=== PATIENT | female | born 1965 | race Caucasian/White ===

== ENCOUNTER 2017-01-30 18:48 | Emergency (ER) | payer OTHER ==
[2017-01-30] MEDS ORDERED: Ibuprofen TAB* 600 MG PO ONE (19:39)
[2017-01-30 20:55] VITALS: BP 137/76
--- NOTE | 2017-01-30 21:01 | RAD ---
Indication: Right foot pain 3 views of the right foot demonstrates degenerative changes of the first metatarsophalangeal joint. No fracture is identified. IMPRESSION: No fracture of the right foot is noted.
--- NOTE | 2017-01-30 21:19 | UC ---
Priscilla Lee SooYoung, scribed for Ricky Shelton MD on 01/30/17 at 1940 . Lower Extremity/Ankle HPI - HPI Summary HPI Summary: A 51 y/o F [place] [facility] [place]/o R foot pain onset 4 to 5 days ago. She went to move a stool and mistakenly kicked it with the inside of her R foot. She states her L foot is nml. Denies R ankle pain. - History of Current Complaint Chief Complaint: UCLowerExtremity Stated Complaint: ANKLE INJURY Time Seen by Provider: 01/30/17 19:35 Hx Obtained From: Patient Hx Last Menstrual Period: 11/08/14 Onset/Duration: Sudden Onset, Lasting Days, Still Present Severity Initially: Moderate Severity Currently: Moderate Pain Intensity: 7 Pain Scale Used: 0-10 Numeric Aggravating Factor(s): Standing, Ambulation Able to Bear Weight: Yes - Allergies/Home Medications Allergies/Adverse Reactions: Allergies Allergy/AdvReac Type Severity Reaction Status Date / Time Doxycycline Allergy Intermediate GI Upset Verified 03/16/15 12:26 Nortriptyline Allergy Intermediate See Comment Verified 03/16/15 12:26 Penicillins Allergy Intermediate Difficulty Verified 03/16/15 12:26 Breathing/Wheezing PMH/Surg Hx/FS Hx/Imm Hx Previously Healthy: No Endocrine History: Thyroid Disease Respiratory History: Asthma - Surgical History Surgical History: Yes Surgery Procedure, Year, and Place: age 14- bowel surgery, tubal, 03/2012-tumor removed between rib and hip, neck surgery for bone spurs. - Social History Occupation: Unemployed Lives: Alone Alcohol Use: None Alcohol Amount: no etoh in 8 years. Substance Use Type: Prescribed Smoking Status (MU): Never Smoked Tobacco Review of Systems Constitutional: Negative Musculoskeletal: Other: - pos: R foot pain; denies R ankle pain All Other Systems Reviewed And Are Negative: Yes Physical Exam Triage Information Reviewed: Yes Vital Signs: Initial Vital Signs Temp 99.0 F 01/30/17 18:51 Pulse 77 01/30/17 18:51 Resp 18 01/30/17 18:51 BP 121/76 01/30/17 18:51 Pulse Ox 100 01/30/17 18:51 Vital Signs Reviewed: Yes Musculoskeletal: Positive: Other: - Tender at R medial foot on plantar surface and medial surface. Ankle is nontender. Good capillary refill. No sensation deficit. Diagnostics - Radiology R FOOT Xray Interpretation: No Acute Changes - IMPRESSION: No fx of the R foot is noted. Radiology Interpretation Completed By: Radiologist Lower Extremity Course/Dx - Course Course Of Treatment: Pt medications reviewed this visit. Normal BP reading and no follow-up instructions required. X-RAY RESULTS DISCUSSED WITH THE PATIENT. - Differential Dx/Diagnosis Provider Diagnoses: RIGHT FOOT STRAIN Discharge - Discharge Plan Condition: Stable Disposition: HOME Patient Education Materials: Foot Sprain (ED) Referrals: Polina BIRD,Dmitriy Carranza [Primary Care Provider] - Additional Instructions: FOLLOW UP WITH YOUR DOCTOR. GET RECHECKED FOR ANY WORSENING OF YOUR CONDITION OR QUESTIONS OR CONCERNS. The documentation as recorded by the Priscilla agarwal SooYoung accurately reflects the service I personally performed and the decisions made by me, Ricky Shelton MD.
== END 2017-01-30 21:22 | disposition home or self-care (01) ==
LOC: UCEAST 18:48
DX: S93.601A Unspecified sprain of right foot, initial encounter (principal); W22.03XA Walked into furniture, initial encounter; Y93.9 Activity, unspecified; Y92.9 Unspecified place or not applicable; Y99.9 Unspecified external cause status
CPT/HCPCS: 99212; A9270-GY; G0463

== ENCOUNTER 2018-02-19 14:29 | Emergency (ER) | payer OTHER ==
--- NOTE | 2018-02-19 16:12 | UC ---
Back Pain HPI - History of Current Complaint Chief Complaint: UCBackPain Stated Complaint: LEG AND HIP PAIN Time Seen by Provider: 02/19/18 15:56 Hx Last Menstrual Period: 12/29/17 Pain Intensity: 10 - Allergies/Home Medications Allergies/Adverse Reactions: Allergies Allergy/AdvReac Type Severity Reaction Status Date / Time doxycycline Allergy GI Upset Verified 02/19/18 14:59 morphine Allergy GI Upset Verified 02/19/18 14:59 nortriptyline Allergy Altered Verified 02/19/18 14:59 Mental Status Penicillins Allergy Difficulty Verified 02/19/18 14:59 Breathing PMH/Surg Hx/FS Hx/Imm Hx - Surgical History Surgical History: Yes Surgery Procedure, Year, and Place: age 14- bowel surgery, tubal, 03/2012-tumor removed between rib and hip, neck surgery for bone spurs. - Social History Alcohol Use: None Alcohol Amount: no etoh in 8 years. Substance Use Type: Prescribed Smoking Status (MU): Never Smoked Tobacco Physical Exam Vital Signs: Initial Vital Signs Temp 98.6 F 02/19/18 14:52 Pulse 82 02/19/18 14:52 Resp 12 02/19/18 14:52 BP 110/77 02/19/18 14:52 Pulse Ox 99 02/19/18 14:52 Discharge - Discharge Plan Referrals: Polina BIRD,Dmitriy Carranza [Primary Care Provider] -
--- NOTE | 2018-02-19 16:32 | RAD ---
INDICATION: Low back pain. COMPARISON: Comparison is made with a prior x-ray study from February 07, 2013. TECHNIQUE: 5 views of the lumbar spine were obtained including lateral, oblique, AP and a coned-down lateral view of the lumbar sacral junction. FINDINGS: There is a mild lumbar scoliosis convex toward the right side. There is straightening of the lumbar spine. The vertebra are otherwise in normal alignment. No fracture is seen. There is moderate to severe degenerative disc disease at the L1-L2, L2-L3 and L5-S1 levels and moderate degenerative disc disease at the L3-L4 and L4-L5 levels. This has progressed from the prior study. Note is made of surgical sutures in the right lower quadrant. IMPRESSION: MODERATE TO SEVERE DEGENERATIVE DISC DISEASE.
[2018-02-19 16:58] VITALS: BP 105/68
== END 2018-02-19 17:39 | disposition home or self-care (01) ==
LOC: UCEAST 14:29
DX: M79.606 Pain in leg, unspecified (principal); M25.559 Pain in unspecified hip
CPT/HCPCS: 72110; 99212; G0463

== ENCOUNTER 2018-02-25 12:52 | Emergency (ER) | payer OTHER ==
[2018-02-25] MEDS ORDERED: Ketorolac INJ* 60 MG/2 ML VIAL IM ONE (13:23)
--- NOTE | 2018-02-25 13:43 | ED ---
Neck Pain - HPI Summary HPI Summary: Patient is a 52-year-old female who presents emergency department for exacerbation of chronic neck pain. Patient states a few days ago she was lifting heavy objects of liquid and she developed increased neck pain. Patient states she has a history of neck surgery remotely secondary to bone spurs. She also notes she has a history of headaches and has been having a headache with neck pain as well. Headache is located to the base of head. She denies numbness, tingling or weakness. States headache is similar to prior headaches. Movement makes symptoms worse. Nothing makes symptoms better. Patient states she is prescribed also relaxers and narcotics but does not like to take them. Patient is concerned that her hardware has possibly moved because she has been hearing a "grinding sensation." Symptoms are mild in severity. - History of Current Complaint Chief Complaint: EDNeckComplaint Stated Complaint: NECK PAIN,HEADACHE Time Seen by Provider: 02/25/18 13:03 Hx Obtained From: Patient Hx Last Menstrual Period: 12/29/17 Pain Intensity: 9 - Allergies/Home Medications Allergies/Adverse Reactions: Allergies Allergy/AdvReac Type Severity Reaction Status Date / Time doxycycline Allergy GI Upset Verified 02/19/18 14:59 morphine Allergy GI Upset Verified 02/19/18 14:59 nortriptyline Allergy Altered Verified 02/19/18 14:59 Mental Status Penicillins Allergy Difficulty Verified 02/19/18 14:59 Breathing Home Medications: Home Medications Levothyroxine TAB* [Synthroid TAB*] 62.5 mcg PO DAILY 02/25/18 [History Confirmed 02/25/18] PMH/Surg Hx/FS Hx/Imm Hx Previously Healthy: Yes Endocrine/Hematology History: Reports: Hx Thyroid Disease Denies: Hx Diabetes Cardiovascular History: Denies: Hx Hypertension - Low Blood pressure Respiratory History: Reports: Hx Asthma Denies: Hx Chronic Obstructive Pulmonary Disease (COPD) GI History: Denies: Hx Ulcer Neurological History: Reports: Hx Headaches - Cancer History Hx Chemotherapy: No Hx Radiation Therapy: No - Surgical History Surgery Procedure, Year, and Place: age 14- bowel surgery, tubal, 03/2012-tumor removed between rib and hip, neck surgery for bone spurs. Infectious Disease History: No Infectious Disease History: Denies: Hx Clostridium Difficile, Hx Hepatitis, Hx Human Immunodeficiency Virus (HIV), Hx of Known/Suspected MRSA, Hx Shingles, Hx Tuberculosis, History Other Infectious Disease, Traveled Outside the [place] in Last 30 Days - Social History Occupation: Unemployed Lives: Alone Alcohol Use: None Alcohol Amount: no etoh in 8 years. Substance Use Type: Reports: Prescribed Smoking Status (MU): Never Smoked Tobacco Review of Systems Constitutional: Negative Eyes: Negative Positive: Nausea. Negative: Vomiting Positive: Other - Neck pain Positive: Headache. Negative: Weakness, Paresthesia, Numbness All Other Systems Reviewed And Are Negative: Yes Physical Exam Triage Information Reviewed: Yes Vital Signs On Initial Exam: Initial Vitals Temp Pulse Resp BP Pulse Ox 98.6 F 81 17 122/70 97 02/25/18 12:56 02/25/18 12:56 02/25/18 12:56 02/25/18 12:56 02/25/18 12:56 Vital Signs Reviewed: Yes Appearance: Positive: Pain Distress - Pt. sitting up in bed, appears uncomfortable but nontoxic. Skin: Positive: Warm, Dry Head/Face: Positive: Normal Head/Face Inspection Eyes: Positive: Normal Neck: Positive: Supple - Paraspinal cervical tenderness. Musculoskeletal: Positive: Other - 5/5 strength to bilateral upper extremities. Neurological: Positive: Normal, CN Intact II-III Psychiatric: Positive: Affect/Mood Appropriate Diagnostics - Vital Signs Vital Signs Temp Pulse Resp BP Pulse Ox 02/25/18 12:56 98.6 F 81 17 122/70 97 - Laboratory Lab Statement: Any lab studies that have been ordered have been reviewed, and results considered in the medical decision making process. Neck Course/Dx - Course Course Of Treatment: Patient presenting for exacerbation of chronic head and neck pain. She is afebrile. No neurological deficits on exam. Pt. is concerned with worsening pain and the possibility of hardware moving. Will obtain neck x-ray and give IM Toradol for pain. Cervical x-ray shows surgical changes with degenerative disc disease and osteoarthritis, reading per radiology. On reexamination patient states her pain has improved. Results were discussed. Advised her to call her family doctor for a close f.u appointment. Continue medications at home as directed. To apply warm compresses to neck. To return the ER if symptoms change or worsen. Patient understands and agrees with plan. - Diagnoses Differential Dx/HQI/PQRI: Positive: Cervical Fracture, Dislocation, Sprain, Strain, Torticollis Provider Diagnoses: Chronic neck pain, Cephalgia Discharge - Sign-Out/Discharge Documenting (check all that apply): Patient Departure - Discharge Plan Condition: Good Disposition: HOME Patient Education Materials: Tension Headache (ED), Chronic Neck Pain (DC) Referrals: Polina BIRD,Dmitriy Carranza [Primary Care Provider] - Additional Instructions: Call your PCP to schedule an appointment Continue home medications as directed Apply warm compress to neck Return to ER if symptoms change or worsen - Billing Disposition and Condition Condition: GOOD Disposition: Home
--- NOTE | 2018-02-25 14:45 | RAD ---
HISTORY: pain, neck pain COMPARISONS: February 27, 2013 VIEWS: 5, Frontal, lateral, open-mouth odontoid, and bilateral oblique views of the cervical spine. FINDINGS: The cervical spine is visualized from the skull base through T1. ALIGNMENT: There is straightening of the normal cervical lordosis. VERTEBRAL BODIES: The patient is status post anterior cervical fusion from C5 through C7. There is no hardware failure or osteolysis. There is anterolateral marginal osteophyte formation most pronounced at C4-C5. JOINTS: There is uncovertebral and facet osteoarthritis. On the oblique views, there is mild left neural foraminal narrowing at C5-C6. INTERVERTEBRAL DISCS: There is diffuse loss of intervertebral disc height. Intervertebral graft material is noted at C5-C6 and C6-C7 SOFT TISSUE: The prevertebral soft tissues are normal. OTHER: The skull base is normal. The lung apices are clear. IMPRESSION: STATUS POST ANTERIOR CERVICAL FUSION. DEGENERATIVE DISC DISEASE AND OSTEOARTHRITIS.
[2018-02-25 15:08] VITALS: BP 130/80
== END 2018-02-25 15:10 | disposition home or self-care (01) ==
LOC: ED 12:52
DX: M50.323 Other cervical disc degeneration at C6-C7 level (principal); M47.812 Spondylosis without myelopathy or radiculopathy, cervical region; G89.29 Other chronic pain; R51 Headache; E07.9 Disorder of thyroid, unspecified; Z98.1 Arthrodesis status; Z79.899 Other long term (current) drug therapy; Z88.5 Allergy status to narcotic agent; Z88.0 Allergy status to penicillin; Z88.3 Allergy status to other anti-infective agents
CPT/HCPCS: 72050; 96372; 99282; J1885

== ENCOUNTER 2019-02-24 18:20 | Emergency (ER) | payer OTHER ==
--- NOTE | 2019-02-24 18:32 | UC ---
Skin Complaint HPI - History of Current Complaint Time Seen by Provider: 02/24/19 18:31 Stated Complaint: SUNBURN COMP Hx Last Menstrual Period: 12/29/17 - Allergy/Home Medications Allergies/Adverse Reactions: Allergies Allergy/AdvReac Type Severity Reaction Status Date / Time doxycycline Allergy GI Upset Verified 01/29/19 07:50 morphine Allergy GI Upset Verified 01/29/19 07:50 nortriptyline Allergy Altered Verified 01/29/19 07:50 Mental Status Penicillins Allergy Difficulty Verified 01/29/19 07:50 Breathing PMH/Surg Hx/FS Hx/Imm Hx - Surgical History Surgical History: Yes Surgery Procedure, Year, and Place: age 14- bowel surgery, tubal, 03/2012-tumor removed between rib and hip, neck surgery for bone spurs. - Family History Known Family History: Negative: Cardiac Disease, Hypertension, Diabetes - Social History Alcohol Use: None Alcohol Amount: no etoh in 8 years. Substance Use Type: None Smoking Status (MU): Never Smoked Tobacco Discharge - Discharge Plan Referrals: Polina BIRD,Dmitriy Carranza [Primary Care Provider] -
[2019-02-24 18:41] VITALS: BP 118/69
--- NOTE | 2019-02-24 18:48 | UC ---
General HPI - HPI Summary HPI Summary: Pleasant 53 yo female c/o sunburn to both lower ext's. Sunburn started apprx 5 days ago, but then went out in the sun yesterday. Several blisters have appeared to R ant tib, and some smalled blisters to L ant tib. No fever / chills. She is planning to f/u with her pcp for recheck re palpitations and back problems. These have not worsened, no palpitations today. No gI / gu issues. Pt is disabled d/t severe neck and back issues with chronic pain and dysesthesia. Last tet unsure - History of Current Complaint Chief Complaint: UCBurn Stated Complaint: SUNBURN COMP Time Seen by Provider: 02/24/19 18:31 Hx Obtained From: Patient Hx Last Menstrual Period: still having a period - has been bleeding for a month Pain Intensity: 9 - Allergy/Home Medications Allergies/Adverse Reactions: Allergies Allergy/AdvReac Type Severity Reaction Status Date / Time amitriptyline [From Elavil] Allergy Altered Verified 02/24/19 18:50 Mental Status diphenhydramine Allergy Altered Verified 02/24/19 18:42 [From Benadryl] Mental Status doxycycline Allergy GI Upset Verified 02/24/19 18:42 lorazepam [From Ativan] Allergy Altered Verified 02/24/19 18:50 Mental Status morphine Allergy GI Upset Verified 02/24/19 18:42 nortriptyline Allergy Altered Verified 02/24/19 18:42 Mental Status Penicillins Allergy Difficulty Verified 02/24/19 18:42 Breathing pseudoephedrine Allergy Altered Verified 02/24/19 18:42 [From Sudafed] Mental Status Home Medications: Home Medications Ibuprofen TAB* [Motrin TAB* 600 MG] 800 mg PO Q6H PRN 02/24/19 [History Confirmed 02/24/19] PMH/Surg Hx/FS Hx/Imm Hx Previously Healthy: No - see hpi and 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 moles removed - Family History Known Family History: Negative: Cardiac Disease, Hypertension, Diabetes - Social History Occupation: Disabled Alcohol Use: None Alcohol Amount: no etoh in 8 years. Substance Use Type: None Smoking Status (MU): Never Smoked Tobacco Review of Systems All Other Systems Reviewed And Are Negative: Yes Constitutional: Positive: Negative Skin: Positive: Other - see hpi ENT: Positive: Negative Respiratory: Positive: Negative Cardiovascular: Positive: Palpitations - see hpi. not a new issue. + hx heart murmur. Gastrointestinal: Positive: Negative Genitourinary: Positive: Negative Motor: Positive: Other - see hpi Neurovascular: Positive: Other - see hpi Musculoskeletal: Positive: Other: - see hpi Neurological: Positive: Other - see hpi Psychological: Positive: Negative Is Patient Immunocompromised?: No Physical Exam Triage Information Reviewed: Yes Appearance: Well-Appearing, Well-Nourished Vital Signs: Initial Vital Signs Temp 98.9 F 02/24/19 18:32 Pulse 91 02/24/19 18:32 Resp 20 02/24/19 18:32 BP 118/69 02/24/19 18:32 Pulse Ox 100 02/24/19 18:32 Vital Signs Reviewed: Yes Eye Exam: Normal ENT Exam: Normal Neck exam: Normal Respiratory Exam: Normal Respiratory: Positive: Chest non-tender, Lungs clear, Normal breath sounds, No respiratory distress, No accessory muscle use Cardiovascular Exam: Other - RRR, + murmur syst approx 2/6. HR correlates with R radial pulse. Abdominal Exam: Normal Abdomen Description: Positive: Nontender Musculoskeletal Exam: Other - gait slow, steady. somewhat hunched. Neurological Exam: Other - grossly nonfocal, chronic issues reported Psychological Exam: Normal - conversing easily and appropriately Skin Exam: Other - nondiaphoretic, no vis or reported rash. Sunburn bilat ant tib with blisters R>L. No purulence. Very tender. Course/Dx - Course Course Of Treatment: EKG reviewed (see meditech), NSR Blisters draining serous nonpurulent material. Bandages to R and L placed by myself with nonadherent, contact layer, gauze, roll guaze / tape. Reviewed coa / tx plan. Reviewed wound care. Questions as posed answered to the best of my ability. Encouraged f/u with pcp. - Diagnoses Provider Diagnosis: Sunburn, Palpitation Discharge - Sign-Out/Discharge Documenting (check all that apply): Patient Departure All imaging exams completed and their final reports reviewed: No Studies - Discharge Plan Condition: Improved Disposition: HOME Prescriptions: Mupirocin 2% OINT* [Bactroban 2 % Oint*] 1 applic TOPICAL BID 5 Days #1 tube Patient Education Materials: Diphtheria/Acellular Pertussis/Tetanus Booster Vaccine (By injection), Heart Palpitations (ED), Sunburn (ED) Referrals: Polina BIRD,Dmitriy Carranza [Primary Care Provider] - Additional Instructions: Follow up with your primary care physician - call tomorrow for appointment tomorrow or early next week. Please go to the Emergency Department for any worse or new problems. Hydrate. Gallegos: Avoid strong soaps, hydrogen peroxide, rubbing alcohol. Elevate legs frequently throughout the day. Consider compression socks or stockings (check with Dr. Fish) when the gallegos are improved and less painful. for five days: 50/50 mupirocin (prescription) / hydrocortisone cream (over the counter) - thin layer to shins twice daily. You do not need to bandage them after tomorrow, but please Avoid direct sun exposure. After 5 days, moisturize daily with unscented moisturizer. Shower ok tomorrow. Bath ok in 5 days. No swimming or hot tub for 2 weeks (longer if still oozing). - Billing Disposition and Condition Condition: IMPROVED Disposition: Home
[2019-02-24] MEDS ORDERED: Tetan/Diph/Pertus SYR(Tdap)* 0.5 ML SYR(BOOSTRIX) use SYR IM ONE (19:41)
== END 2019-02-24 20:07 | disposition home or self-care (01) ==
LOC: UCEAST 18:20
DX: L55.9 Sunburn, unspecified (principal); R00.2 Palpitations; Z88.5 Allergy status to narcotic agent; Z88.0 Allergy status to penicillin
CPT/HCPCS: 90471; 90715; 99212; G0463

== ENCOUNTER 2019-06-15 09:39 | Emergency (ER) | payer OTHER ==
[2019-06-15 10:01] VITALS: BP 115/80
--- NOTE | 2019-06-15 10:23 | UC ---
Complaint Female HPI - HPI Summary HPI Summary: 54-year-old female who started having urinary symptoms approximately 4 days ago with urinary frequency, urgency and burning on urination. She is sexually active with one partner and denies any abnormal vaginal discharge. She states that, what she describes as pelvic pain, is worse when she urinates and she urinates just small bits at a time. Patient also has a mild headache today with some mild upper left jaw pain which she attributes to a broken decayed tooth which she has had for over one year and occasionally that will become painful and causes jaw pain. She has had several negative experiences with dentists and is reluctant to see a dentist for further care. - History Of Current Complaint Chief Complaint: UCGU Stated Complaint: PELVIC PAIN Time Seen by Provider: 06/15/19 09:59 Hx Obtained From: Patient Hx Last Menstrual Period: 05/10/19, states irreg. ?: No Onset/Duration: Gradual Onset, Lasting Days Timing: Constant Severity Initially: Mild Severity Currently: Moderate Pain Intensity: 6 Character: Burning Aggravating Factor(s): Urination Associated Signs And Symptoms: Positive: Nausea. Negative: Vaginal Bleeding/ Discharge, Vaginal Discharge - Allergies/Home Medications Allergies/Adverse Reactions: Allergies Allergy/AdvReac Type Severity Reaction Status Date / Time amitriptyline [From Elavil] Allergy Altered Verified 06/15/19 09:52 Mental Status diphenhydramine Allergy Altered Verified 06/15/19 09:52 [From Benadryl] Mental Status doxycycline Allergy GI Upset Verified 06/15/19 09:52 latex Allergy Rash Verified 06/15/19 09:52 lorazepam [From Ativan] Allergy Altered Verified 06/15/19 09:52 Mental Status morphine Allergy GI Upset Verified 06/15/19 09:52 nortriptyline Allergy Altered Verified 06/15/19 09:52 Mental Status Penicillins Allergy Difficulty Verified 06/15/19 09:52 Breathing pseudoephedrine Allergy Altered Verified 06/15/19 09:52 [From Sudafed] Mental Status PMH/Surg Hx/FS Hx/Imm Hx Previously Healthy: Yes Endocrine History: Thyroid Disease Respiratory History: Asthma - Surgical History Surgical History: Yes Surgery Procedure, Year, and Place: age 14- bowel surgery, tubal, 03/2012-tumor removed between rib and hip, neck surgery for bone spurs. appendectomy. moles removed - Family History Known Family History: Negative: Cardiac Disease, Hypertension, Diabetes - Social History Lives: With Family Alcohol Use: None Alcohol Amount: no etoh in 8 years. Substance Use Type: None Smoking Status (MU): Never Smoked Tobacco Review of Systems All Other Systems Reviewed And Are Negative: Yes ENT: Positive: Dental Pain - Patient has a broken upper molar, tooth #14, which is been broken for proximally one year and occasionally causes dental pain. Genitourinary: Positive: Dysuria, Frequency, Urgency, Other - The pain patient describes as pelvic pain is more associated with urination. Periods are irregular, she has had a tubal ligation years ago. She is on no other control.. Negative: Vaginal/Penile Burning, Vaginal/Penile Itching, Vaginal/ Penile Discharge, Vaginal/Penile Pain, Vaginal/Penile Tenderness Is Patient Immunocompromised?: No Physical Exam Triage Information Reviewed: Yes Appearance: Well-Appearing, No Pain Distress, Well-Nourished Vital Signs: Initial Vital Signs Temp 98.9 F 06/15/19 09:54 Pulse 68 06/15/19 09:54 Resp 16 06/15/19 09:54 BP 115/80 06/15/19 09:54 Pulse Ox 98 06/15/19 09:54 Eyes: Positive: Conjunctiva Clear ENT: Positive: Hearing grossly normal, Pharynx normal, TMs normal, Uvula midline Neck: Positive: Supple, Nontender, No Lymphadenopathy Respiratory: Positive: Lungs clear, Normal breath sounds, No respiratory distress, No accessory muscle use Cardiovascular: Positive: RRR, No Murmur - Patient has a history of murmur but I did not hear one today., Pulses Normal, Brisk Capillary Refill Abdomen Description: Positive: No Organomegaly, Soft, Other: - Mild tenderness over the suprapubic area.. Negative: CVA Tenderness (R), CVA Tenderness (L), Distended, Guarding, Hepatomegaly, McBurney's Point Tenderness, Splenomegaly Bowel Sounds: Positive: Present Musculoskeletal Exam: Normal Neurological Exam: Normal Psychological Exam: Normal Skin Exam: Normal Complaint Female Dx - Course Course Of Treatment: Urinalysis: Positive for leukocytes, blood and protein. Urine test: Negative I'm going to treat the patient with Bactrim DS one tab by mouth twice a day 7 days to also cover the possible tooth infection. She is to follow-up with a dentist for further care. She is to increase fluids. I also gave her Pyridium 100 mg by mouth 3 times a day as needed for urinary spasms. Definite follow-up with the emergency room if she develops fever, chills, vomiting and unable keep the medicine down or any worsening symptoms. The patient is agreeable to this plan of action. - Differential Dx/Diagnosis Provider Diagnosis: UTI (urinary tract infection), Toothache Discharge ED - Sign-Out/Discharge Documenting (check all that apply): Patient Departure All imaging exams completed and their final reports reviewed: No Studies - Discharge Plan Condition: Fair Disposition: HOME Prescriptions: Phenazopyridine TAB* [Pyridium 100 mg TAB*] 100 mg PO TID PRN 3 Days #9 tab PRN Reason: Pain - Mild Sulfamethox/Trimethoprim DS* [Bactrim DS 800/160 TAB*] 1 tab PO BID 7 Days #14 tab Patient Education Materials: Urinary Tract Infection in Women (DC) Referrals: Polina BIRD,Dmitriy Carranza [Primary Care Provider] - Additional Instructions: Increase fluids, Tylenol or Motrin for pain. The Pyridium will turn your urine orange. Follow-up with your primary care provider if no improvement in 3 or 4 days. Go to the emergency room if you develop fever, chills, worsening symptoms and elevated keep the medicine down. - Billing Disposition and Condition Condition: FAIR Disposition: Home - Attestation Statements Provider Attestation: Per institutional requirements, I have reviewed the chart, however, I was not consulted specifically or made aware of this patient by the midlevel provider. I did not personally evaluate, interact with , or disposition this patient.
== END 2019-06-15 10:40 | disposition home or self-care (01) ==
LOC: UCEAST 09:39
DX: N39.0 Urinary tract infection, site not specified (principal); K08.89 Other specified disorders of teeth and supporting structures; J45.909 Unspecified asthma, uncomplicated; Z88.8 Allergy status to other drugs, medicaments and biological substances; Z88.0 Allergy status to penicillin; Z91.040 Latex allergy status; Z88.1 Allergy status to other antibiotic agents
CPT/HCPCS: 81003; 84702; 87077; 87086; 87186; 99212; G0463

== ENCOUNTER 2019-11-01 09:57 | Emergency (ER) | payer OTHER ==
--- OUTSIDE RECORDS SUMMARY | 2019-11-01 10:05 | XMS REPORT | Continuity of Care Document ---
:1965 Author Organization 0001 - [facility] Address [address] [place] [address] Phone Care Team Providers Name Role Phone MARLENY PERRY Unavailable Unavailable Allergies, Adverse Reactions, Alerts Substance Reaction Status NITROFURANTOIN MACROCRYSTALLINE does not remember. Active nitrofurantoin does not remember. Active PSEUDOEPHEDRINE HCL Active Penicillins Other Active NORTRIPTYLINE HCL Active cefdinir Active iodine Other Active Medications Medication Instructions Dosage Effective Dates Status Comments (start - stop) diazepam 10 mg take 1 tablet by 10 MG - Active tablet ORAL route 3 times every day as needed for anxiety. Synthroid 88 mcg take 1 tablet by 88 MCG - Active tablet oral route every day Soma 350 mg tablet take 1 by Oral - Active route 4 times every day as needed for spasm T.E.D. Medium strenght knee - Active Anti-Embolism high, to wear Stocking regularly T.E.D. Medium strenght knee - Active Anti-Embolism high, to wear Stocking regularly Mobic 15 mg tablet Take one tablet by - Active mouth daily Soma 350 mg tablet take 1 by Oral - No Longer route 4 times every Active day as needed for spasm Synthroid 75 mcg take 1 tablet by 75 MCG - No Longer tablet oral route every Active day Soma 350 mg tablet take 1 by Oral - No Longer route 4 times every Active day as needed for spasm diazepam 10 mg take 1 tablet by 10 MG - No Longer tablet ORAL route 3 times Active every day as needed for anxiety. Synthroid 75 mcg take 1 tablet by 75 MCG - No Longer tablet oral route every Active day Soma 350 mg tablet take 1 by Oral - No Longer route 4 times every Active day as needed for spasm diazepam 10 mg take 1 tablet by 10 MG - No Longer tablet ORAL route 3 times Active every day as needed for anxiety. Synthroid 75 mcg take 1 tablet by 75 MCG - No Longer tablet oral route every Active day T.E.D. 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 Migraine without aura and without status migrainosus, not intractable Anxiety disorder, unspecified Spondylosis of cervical region without myelopathy or radiculopathy Hypothyroidism, unspecified Anxiety disorder, unspecified Hypothyroidism, unspecified group home prescription benzodiazepine use Heart murmur Hypothyroidism, unspecified - Hypothyroidism, unspecified Migraine, unspecified, not intractable, without status migrainosus Anxiety disorder, unspecified Tension-type headache, unspecified, not intractable Hypothyroidism, unspecified Hypothyroidism, unspecified Fibromyalgia Migraine without aura and without status migrainosus, not intractable Osteoarthritis of spine with radiculopathy, lumbar region Spondylosis of cervical region without myelopathy or radiculopathy Anxiety disorder, unspecified Hypothyroidism, unspecified Migraine without aura and without status migrainosus, not intractable Encounter for screening colonoscopy Encounter for screening mammogram for breast cancer Fibromyalgia Chronic bilateral low back pain without sciatica Other chronic pain Anxiety disorder, unspecified Migraine without aura and without status migrainosus, not intractable Tension-type headache, unspecified, not intractable Migraine, unspecified, not intractable, without status migrainosus Hypothyroidism, unspecified Anxiety disorder, unspecified Chronic neck pain Other chronic pain Encounter for screening mammogram for breast cancer Dysmenorrhea High risk sexual behavior Hypothyroidism, unspecified Anxiety disorder, unspecified Migraine, unspecified, not intractable, without status migrainosus Encounter for screening for lipoid disorders Anxiety disorder, unspecified Migraine, unspecified, not intractable, without status migrainosus Status post cervical spinal fusion Dysuria Hypothyroidism Near syncope Dental pain Degeneration, cervical disc Migraine Anxiety Acute (sudden onset) inflammation of the lining of the sinus cavity Screening mammogram (x-ray examination of the breast) for cancer Degeneration, cervical disc Hypothyroidism Migraine Disorder, histrionic personality NOS Nausea Degeneration, cervical disc Migraine NOS w/o intractable migraine Anxiety state NOS Grieving Anxiety state NOS Myalgia/myositis NOS Shoulder pain Left leg pain Anxiety Degeneration, cervical disc Degeneration, lumbar/lumbosacral disc Migraine Shoulder pain Left knee pain Irregular menses Anxiety Degeneration, cervical disc Backache Anxiety Degeneration, cervical disc Anxiety Degeneration, cervical disc Back pain Migraine Fatigue Anxiety Degeneration, cervical disc Allergic conjunctivitis Anxiety Rhinitis, allergic NOS Asthma, extrinsic w/o status asthmaticus Degeneration, cervical disc Headache, tension Anxiety - Rhinitis, allergic NOS - Degeneration, cervical disc - Degeneration, cervical disc Anxiety Headache, tension Migraine Degeneration, cervical disc - Anxiety - Headache, tension - Degeneration, cervical disc Anxiety Headache, tension Degeneration, cervical disc - Anxiety - Headache, tension - Abdominal pain Anxiety Degeneration, cervical disc Migraine Abdominal Pain - Anxiety - Degeneration, cervical disc - Degeneration, cervical disc Anxiety Rhinitis, allergic NOS Tooth pain Degeneration, cervical disc - Anxiety - Rhinitis, allergic NOS - Disorder, dental NOS - Pharyngitis, Acute - Degeneration, cervical disc Anxiety Lipoma of skin NEC Gastritis Degeneration, cervical disc - Anxiety - Lipoma of skin NEC - Gastritis - Degeneration, cervical disc Anxiety Migraine Degeneration, cervical disc - Anxiety - Anxiety Degeneration, cervical disc Migraine Histrionic behavior Anxiety - Degeneration, cervical disc - Hysteria NOS - Degeneration, cervical disc Anxiety Screening for lipoid disorders Hypothyroid Degeneration, cervical disc - Anxiety - Screening for lipoid disorders - Hypothyroidism - Degeneration, cervical disc Anxiety Degeneration, cervical disc - Anxiety - Anxiety Degeneration, cervical disc Sinusitis, Acute Bronchitis, Acute Anxiety - Degeneration, cervical disc - Sinusitis, Acute - Bronchitis, Acute - Anxiety - Stenosis, cervical spinal - Cervical stenosis of spinal canal Anxiety Stenosis, cervical spinal - Anxiety - Sinusitis, Acute Degeneration, cervical disc Anxiety Lipoma Sinusitis, Acute - Degeneration, cervical disc - Anxiety - Lipoma NOS - Degeneration, cervical disc Anxiety Degeneration, lumbar/lumbosacral disc Degeneration, cervical disc - Anxiety - Degeneration, lumbar/lumbosacral disc - Degeneration, cervical disc - Anxiety - Degeneration, lumbar/lumbosacral disc - Degeneration, cervical disc Anxiety Degeneration, cervical disc - Anxiety - Unspecified vitamin D deficiency Anxiety Degeneration, cervical disc Enteritis, viral NOS Fatigue / Malaise Deficiency, vitamin D NOS - Anxiety - Degeneration, cervical disc - Enteritis, viral NOS - Anxiety - Degeneration, cervical disc - Degeneration, lumbar/lumbosacral disc - Degeneration, cervical disc Anxiety Degeneration, lumbar/lumbosacral disc Nausea Degeneration, cervical disc - Anxiety - Degeneration, lumbar/lumbosacral disc - Nausea alone - Degeneration, cervical disc Anxiety Contact dermatitis due to metal Enteritis, viral NOS Degeneration, cervical disc - Anxiety - Dermatitis due to metals - Enteritis, viral NOS - Degeneration, cervical disc Anxiety Atopic eczema Degeneration, lumbar/lumbosacral disc Anxiety Degeneration, cervical disc Anxiety Degeneration, cervical disc Anxiety Degeneration, cervical disc Hypothyroidism Anxiety Degeneration, cervical disc Degeneration, cervical disc Anxiety Contusion, face/scalp/neck Degeneration, cervical disc Cervical Strain Degeneration, lumbar/lumbosacral disc Dermatitis NEC Anxiety Anxiety Degeneration, cervical disc Dermatitis, other atopic Dermatophytosis, foot Degeneration, cervical disc Anxiety Anxiety Degeneration, cervical disc Lymphadenitis, acute Degeneration, cervical disc Degeneration, lumbar/lumbosacral disc Anxiety Pharyngitis, Acute Swelling/mass/lump, localized superficial Degeneration, cervical disc Anxiety Lipoma of skin NEC Dysuria Degeneration, cervical disc Degeneration, lumbar/lumbosacral disc Degeneration, lumbar/lumbosacral disc - Degeneration, cervical disc Myalgia/myositis NOS Degeneration, cervical disc Myalgia/myositis NOS Hypothyroidism NOS Myalgia/myositis NOS Degeneration, cervical disc - Hypothyroidism NOS - Examination, routine medical - Myalgia/myositis NOS - Migraine NOS w/o intractable migraine - Pharyngitis Acute Pharyngitis, Acute Acute AdvEf, allergy, unspecified Acute Reaction, adjustment w/anxious mood Acute Dysuria Acute Cystitis, acute Acute Hypothyroidism NOS Acute Reaction, acute stress w/emotional Acute disturb Degeneration, cervical disc Acute Observ, specfied suspected med cond, Acute not fnd Sinusitis, acute NOS Acute Degeneration, lumbar/lumbosacral disc Acute Spasm, muscle Acute Degeneration, cervical disc Asymptomatic Degeneration, cervical disc Chronic Degeneration, lumbar/lumbosacral disc Chronic Anxiety Chronic Degeneration, cervical disc Chronic Degeneration, cervical disc Chronic Anxiety state NOS Chronic Degeneration, cervical disc Chronic Degeneration, cervical disc Chronic Anxiety state NOS Chronic Anxiety state NOS Chronic Degeneration, lumbar/lumbosacral disc Chronic Disorder, affective personality NOS Chronic Disorder, depressive NEC Chronic Hypothyroidism NOS Chronic Degeneration, cervical disc Chronic Degeneration, lumbar/lumbosacral disc Chronic Degeneration, cervical disc Chronic Disorder, depressive NEC Chronic Disorder, depressive NEC Chronic Degeneration, cervical disc Chronic Degeneration, lumbar/lumbosacral disc Chronic Hypothyroidism NOS Chronic Degeneration, cervical disc Chronic Degeneration, lumbar/lumbosacral disc Chronic Anxiety state NOS Chronic Degeneration, cervical disc Chronic Degeneration, cervical disc Chronic Degeneration, lumbar/lumbosacral disc Chronic Migraine, Unspecified, W/o Mention Of Chronic Intractable Migraine W/o Mention Of Status Migrainosus Degeneration, cervical disc Chronic Disorder, depressive NEC Chronic Disorder, affective personality NOS Chronic Disorder, depressive NEC Chronic Degeneration, lumbar/lumbosacral disc Chronic Degeneration, cervical disc Chronic Degeneration, lumbar/lumbosacral disc Chronic Disorder, depressive NEC Chronic Degeneration, cervical disc Chronic Disorder, depressive NEC Chronic Disorder, histrionic personality NOS Chronic Degeneration, cervical disc Chronic Degeneration, lumbar/lumbosacral disc Chronic Degeneration, cervical disc Chronic Degeneration, lumbar/lumbosacral disc Chronic Disorder, depressive NEC Chronic Disorder, histrionic personality NOS Chronic Degeneration, cervical disc Chronic Degeneration, lumbar/lumbosacral disc Chronic Degeneration, cervical disc Chronic Degeneration, cervical disc Chronic Degeneration, lumbar/lumbosacral disc Chronic Hypothyroidism NOS - Chronic Disorder, depressive NEC - Chronic Disorder, histrionic personality NOS - Chronic Degeneration, cervical disc Chronic Degeneration, lumbar/lumbosacral disc Chronic Disorder, histrionic personality NOS Chronic Disorder, depressive NEC Chronic Degeneration, lumbar/lumbosacral disc Chronic Degeneration, cervical disc Chronic Anxiety state NOS Chronic Spasm, muscle Chronic Degeneration, cervical disc Chronic Degeneration, lumbar/lumbosacral disc Chronic Degeneration, lumbar/lumbosacral disc Chronic Degeneration, cervical disc Chronic Hypothyroidism NOS Chronic Headache, tension Chronic Degeneration, cervical disc Chronic Degeneration, cervical disc Chronic Hypothyroidism NOS Chronic Infection, up respirat, rn homecare sites, Chronic acute NOS Degeneration, cervical disc Chronic Degeneration, lumbar/lumbosacral disc Chronic Anxiety state NOS Chronic Degeneration, cervical disc Chronic Spasm, muscle Chronic Degeneration, lumbar/lumbosacral disc Chronic Myalgia/myositis NOS Chronic Disorder, affective personality NOS Chronic Anxiety state NOS Chronic Myalgia/myositis NOS Chronic Degeneration, cervical disc Chronic Degeneration, cervical disc Chronic Degeneration, cervical disc Chronic Hypothyroidism NOS Chronic Degeneration, cervical disc Chronic Symptom involving abdomen/pelvis NEC Chronic Myalgia/myositis NOS Chronic Degeneration, cervical disc Chronic Hypothyroidism NOS Chronic Myalgia/myositis NOS Chronic Anxiety state NOS Chronic Disorder, affective personality NOS Chronic Myalgia/myositis NOS Chronic Migraine NOS w/o intractable migraine Chronic Hypothyroidism NOS Fair control Migraine NOS w/o intractable migraine Fair control Migraine NOS w/o intractable migraine Fair control Hypothyroidism NOS Good control Anxiety Improved Urticaria, allergic Improved Hypothyroidism NOS Improved Myalgia/myositis NOS Moderate Hypothyroidism Pending workup Hypothyroidism NOS Pending workup Degeneration, cervical disc Pending workup Murmur, cardiac, undiagnosed Recurrent Sinusitis, acute NOS Recurrent Headache, tension Recurrent Hypothyroidism NOS Recurrent Degeneration, cervical disc Stable Degeneration, lumbar/lumbosacral disc Stable Degeneration, cervical disc Stable Degeneration, cervical disc Stable Degeneration, lumbar/lumbosacral disc Stable Degeneration, cervical disc Stable Degeneration, lumbar/lumbosacral disc Stable Lipoma of skin NEC Subacute Neuritis, lumbosacral NOS Subacute Migraine NOS w/o intractable migraine Subacute Hypothyroidism NOS Subacute Abnormal weight gain Subacute Degeneration, cervical disc Unchanged Anxiety Unchanged Degeneration, lumbar/lumbosacral disc Unchanged Degeneration, cervical disc Unchanged Lipoma NOS Unchanged Degeneration, cervical disc Unchanged Degeneration, lumbar/lumbosacral disc Unchanged Degeneration, cervical disc Unchanged Degeneration, lumbar/lumbosacral disc Unchanged Disorder, histrionic personality NOS Unchanged Hypothyroidism NOS Uncontrolled Myalgia/myositis NOS Uncontrolled Lipoma of skin NEC Worse Anxiety Worse Mononeuritis, upper limb NEC Worse Procedures Procedure Date Procedure Unknown Results Test Name Date and Time Measure Units Reference Range Abnormal Flag Status Comments Unknown Encounters Encounter Practice Location Reason(s) Diagnoses Date Provider Providers Description For Visit Copied on Encounter 2019 - [facility] LORD RIZZO [employer], Primary 0- [facility] [address] [place], [address]. [address], tel: tel: [phone] 2019 - [facility] Hypothyroidism, Rithmio, Primary unspecifiedElevated MEGAN. 3344 Care blood-pressure 0 [facility] reading, w/o [address] [place] [address] diagnosis of htn [facility], [address], [facility], tel: [phone] tel: [phone] 2019 [facility] Urinary Rithmio, Primary frequencyHeart 3357 Care murmurAnxiety 0 [facility] disorder, [address] [place] [address], [place] gainHypothyroidism, [place], [place], unspecifiedElevated [place], [address], [place] blood pressure [place], tel: readingLong term [phone]. [id number] prescription tel: benzodiazepine use [phone] 0001 - S Jul- [facility] [employer], Primary 0-202 MEGAN. [address], [place], [address], [place], tel: [phone] tel: [phone] 0001 - S Jun-2 [facility] [employer], Primary 0-201 MEGAN. [address], [place], [place], [place], [address], [place], tel: [phone] tel: [phone] 0001 - S May- [facility], Primary 8-201 MEGAN. Care [address], [place], [place], [place], [address], [place], tel: [phone] tel: [phone] 0001 - S Migraine without aura [employer] [facility], Primary and without status 7-201 MEGAN. Care migrainosus, not 9 [facility] intractableAnxiety [address] [place] [address], [place] disorder, [facility] unspecifiedSpondylosi [place], [place], s of cervical region [place], [address], [place] without myelopathy or [place], tel: radiculopathyHypothyr [phone]. [phone] oidism, unspecified tel: [phone] 0001 - S Feb-2 LORD MARLENY. [facility] [employer], Primary 2-201 [facility] 119 [address]57 Care 9 [facility], [facility], [place], [address]. [address], [place] tel: tel: [phone] 0001 - S Anxiety disorder, [facility], Primary unspecifiedHypothyroi 0- MEGAN. Care dism, unspecifiedLong 9 [facility] [place] term prescription [address] [facility], [place] benzodiazepine St, [place] useHeart murmur [place], [place], [address], [place], tel: [phone] tel: [phone] 0001 - [facility] Hypothyroidism, Oct-3 LORD MARLENY. [facility] [employer], Primary unspecified 0-201 [facility] [address], [facility] Street, [facility], [facility], [place], [address]. [address], [place] tel: tel: [phone] 0001 - [facility] Hypothyroidism, [facility] [facility], Primary unspecifiedMigraine, MEGAN. Care unspecified, not 9 [facility] intractable, without [address] [facility], [place] status , [place] migrainosusAnxiety [place], disorder, unspecified [place], [address], [place], tel: [phone] tel: [phone] 0001 - [facility] Tension-type Mar- [facility] [facility] [employer], Primary headache, MEGAN. Care unspecified, not 9 [facility] intractableHypothyroi [address] [facility], [place] dism, unspecified St, [place], [place], [place], [address], [place], tel: [phone] tel: [phone] 0001 - [facility] Hypothyroidism, [facility], Primary unspecifiedFibromyalg MEGAN. Care iaMigraine without 8 [facility] aura and without [address] [facility], [place] status migrainosus, St, [place] not [place], intractableOsteoarthr [place], [address], [place] itis of spine with [place], tel: radiculopathy, lumbar [phone]. [id number] regionSpondylosis of tel: cervical region [phone] without myelopathy or radiculopathy 0001 - S Anxiety disorder, [facility], Primary unspecifiedHypothyroi MEGNA. Care dism, 8 [facility] unspecifiedMigraine [address], [place] [facility] and [facility] without status [place], migrainosus, not [place], [address], [place] intractableEncounter [place], tel: for screening [phone]. [phone] colonoscopyEncounter tel: for screening [phone] mammogram for breast cancerFibromyalgiaChr onic bilateral low back pain without sciaticaOther chronic pain 0001 - [facility] Anxiety disorder, [facility] [employer], Primary unspecifiedMigraine MEGAN. Care without aura and 7 [facility] without status [address] [facility], [place] migrainosus, not St, [place] intractableTension-ty [place], [place], pe headache, [place], [address], [place] unspecified, not [place], tel: intractable [phone]. [phone] tel: [phone] 0001 - [facility] Migraine, [facility] [employer], Primary unspecified, not MEGAN. Care intractable, without 7 [facility] status [address], [place] migrainosusHypothyroi [address], [place] dism, [facility], [place], unspecifiedAnxiety [place], [address], [place] disorder, [place], tel: unspecifiedChronic [phone]. [phone] neck painOther tel: chronic painEncounter [phone] for screening mammogram for breast cancerDysmenorrheaHig h risk sexual behavior 0001 - [facility] Hypothyroidism, [facility] [employer], Primary unspecifiedAnxiety MEGAN. Care disorder, 6 [facility] unspecifiedMigraine, [address], [place] unspecified, not [facility] intractable, without [place], [place], [address], [place] migrainosusEncounter [place], [place]: [place] [phone]. [phone] lipoid disorders tel: [phone] 0001 - S Anxiety disorder, Aug- [employer], Primary unspecifiedMigraine, MEGAN. Care unspecified, not 6 [facility] [place] intractable, without [address] [facility], [place] status [facility] migrainosusStatus [place], post cervical spinal [place], [address], [place] fusion [place], tel: [phone] tel: [phone] 0001 - S DysuriaHypothyroidism November- [facility] [facility] [employer], Primary Near syncopeDental MEGAN. 33- Care pain 5 [facility] [place] [address] [facility], [place] [address], [place], [place], [address], [place], tel: [phone]. [phone] tel: [phone] 2019 - S Degeneration, Jun- [employer], Primary cervical MEGAN. Care discMigraineAnxietyAc 4 [facility] [place] (sudden onset) [facility], [place] inflammation of the [facility] lining of the sinus [place], [place], cavityScreening [place], [address], [place] mammogram (x-ray [place], [place] [phone]. [phone] breast) for cancer tel: [phone] 2019 - S Degeneration, Mar- [employer], Primary cervical MEGAN. Care discHypothyroidismMig 4 [facility] [place] raineDisorder, [facility], [place] histrionic [facility] personality NOSNausea [place], [place], [address], [place], tel: [phone]. [phone] tel: [phone] 2019 - S Degeneration, Josh-0 [employer], Primary cervical discMigraine MEGAN. Care NOS w/o intractable 4 [facility] [place] migraineAnxiety state [address] [facility], [place] NOS[address], [place], [place], [place], [address], [place], tel:[phone] tel: [phone] 0001 - S Anxiety state Dec- [facility] [employer] [employer], Primary NOSMyalgia/myositis 2-201 MEGAN. Provider: 33 Care NOSShoulder painLeft 3 S PC MEGAN [place] leg pain 119 [facility], [address], [place], [place], [place] [address], [facility], [place], tel: [phone]. [place], [phone]. [phone] tel: tel:[phone] 0001 - S AnxietyDegeneration, [facility] Inc, Primary cervical 8-201 MEGAN. 33 Care discDegeneration, 3 [facility] lumbar/lumbosacral [address] [place] [address] discMigraineFormerly [facility], [facility] painLe knee [place], [place], painIrregular menses [place] [address], [facility], tel: [phone] tel: [phone] 0001 - S AnxietyDegeneration, [facility] Inc, Primary cervical disc 2-201 MEGAN. [address], [place], [place], [place], [address], [facility], tel: [phone]. [phone] tel: [phone] 2019 - S BackacheAnxietyDegene [facility] Inc, Primary ration, cervical disc 7-201 MEGAN. [address], [place], [place], [place], [address], [facility], tel: [phone]. [phone] tel: [phone] 0001 - S AnxietyDegeneration, [facility], Primary cervical discBack 8-201 MEGAN. 33 Care painMigraine [address], [place], [place], [address], [place], tel: [phone]. [phone] tel: [phone] 0001 - [facility] FatigueAnxietyDegener Akhil-0 [employer], Primary ation, cervical 7- MEGAN. 33-57 Care discAllergic 3 [facility] [place] conjunctivitis [address], [place] [address], [place], [place], [address], [place], tel: [phone]. [phone] tel: [phone] 0001 - [facility] AnxietyRhinitis, May-0 [employer], Primary allergic NOSAsthma, MEGAN. 33-57 Care extrinsic w/o status 3 [facility] [place] asthmaticusDegenerati [facility], [place] on, cervical St, [place] discHeadache, [place], [place], tensionAnxietyRhiniti [place], [address], [place] s, allergic [place], tel: NOSDegeneration, [phone]. [id number] cervical disc tel: [phone] 0001 - S Degeneration, Apr-0 [employer], Primary cervical 8 MEGAN. 33-57 Care discAnxietyHeadache, 3 [facility] [place] tensionMigraineDegene [facility], [place] ration, cervical St, [place] discAnxietyHeadache, [place], [place], tension [place], [address], [place], tel: [phone]. [phone] tel: [phone] 2019 - S Degeneration, Mar-0 [employer], Primary cervical MEGAN. 33-57 Care discAnxietyHeadache, 3 [facility] [place] tensionDegeneration, [address] [facility] [address], [place] cervical St, [place] discAnxietyHeadache, [place], [place], [place], [address], [place], tel: [phone]. [phone] tel: [phone] 0001 - S Abdominal Feb-0 [employer], Primary painAnxietyDegenerati MEGAN. 33-57 Care on, cervical 3 [facility] [place] discMigraineAbdominal [facility], [place] PainAnxietyDegenerati [facility] on, cervical disc [facility], [place], [place], [address], [place], tel: [phone]. [phone] tel: [phone] 0001 - [facility] Degeneration, Jul- SKIFF [facility] Inc, Primary cervical 9-201 MEGAN. 33 Care discAnxietyRhinitis, 3 [facility] [place] allergic NOSTooth [address] [facility], [place] painDegeneration, St, [place] cervical [place], discAnxietyRhinitis, [place], [address], [place] allergic NOSDisorder, [place], tel: dental NOS [phone]. [phone] tel: [phone] 0001 - S PharyngitisPharyngiti [facility] Referring [facility] Inc, Primary s, Acute 4-201 MEGAN. Provider: 33 Care 3 S PC MEGAN Lopez [address], [facility], [facility], PC [address] [place] [address], [place], [place] [address], [place], [place], tel: [address]. [place], [address]. [id number] tel: tel:[phone] 0001 - [facility] Degeneration, Jun- SKIFF [facility] Inc, Primary cervical 2-201 MEGAN. 33 Care discAnxietyLipoma of 2 [facility] MARIAELENA Russo skin [address] [place] [address], [place] NECGastritisDegenerat , [place] ion, cervical [place], discAnxietyLipoma of [place], [address], [place] skin NECGastritis [place], tel: [phone]. [phone] tel: [phone] 0001 - [facility] Degeneration, Nov SKIFF [employer], Primary cervical 6-201 MEGAN. 33-57 Care discAnxietyMigraineDe 2 [facility] PC John Russo generation, cervical [address] [facility], [place] discAnxiety St, [place] [facility], [place], [place], [address], [place], tel: [phone]. [phone] tel: [phone] 0001 - [facility] Lipoma of skin NEC Sep-1 LORD MARLENY. [facility] Inc, Primary 3-201 UHSPC 119 33-[address], [facility] Street, [place], [place], [place], [address]. [address], [place] tel: tel: [phone] 0001 - [facility] AnxietyDegeneration, Mar- SKIFF [facility] Inc, Primary cervical 1-201 MEGAN. 33-57 Care discMigraineHistrioni [address] [facility] c [address], [place] behaviorAnxietyDegene [address], [place] ration, cervical [place], [place], discHysteria N[place], [address], [place], tel: [phone]. [phone] tel: [phone] 0001 - [facility] Degeneration, Jan- SKIFF [employer] Inc, Primary cervical 1-201 MEGAN. Care discAnxietyScreening 2 [facility] for lipoid [address] [facility], [place] disordersHypothyroidD St, [place] egeneration, cervical [place], [place], discAnxietyScreening [place], [address], [place] for lipoid [place], tel: disordersHypothyroidi 322[address]. [phone] tel: [phone] 0001 - [facility] Degeneration, Akhil- SKIFF [facility], Primary cervical 4-201 MEGAN. 3357 Care discAnxietyDegenerati [address] [facility] on, cervical [address], [place] discAnxiety [address], [place], [place], [address], [place], tel: [phone]. [phone] tel: [phone] 0001 - [facility] AnxietyDegeneration, November- SKIFF [facility] Inc, Primary cervical 7-201 MEGAN. 33-57 Care discSinusitis, [address] [facility] AcuteBronchitis, [address], [place] AcuteAnxietyDegenerat St, [place] ion, cervical [place], [place], discSinusitis, [place], [address], [place] AcuteBronchitis, [place], tel: Acute [phone]. [phone] tel: [phone] 0001 - [facility] AnxietyAnxietyStenosi Apr- [employer], Primary s, cervical spinal 9-201 MEGAN. 33-57 Care 2 [facility] [place] [address], [place] St, [place], [place], [place], [address], [place], tel: [phone]. [phone] tel: [phone] 0001 - [facility]HS Cervical stenosis of Sep- [employer], Primary spinal 2-201 MEGAN. 33-57 Care canalAnxietyStenosis, 2 [facility] [place] cervical [address], [place] spinalAn[address], [place], [place], [place], [address], [place], tel: [phone]. [phone] tel: [phone] 0001 - [facility] Sinusitis, Jul- [employer], Primary AcuteDegeneration, 6 MEGAN. 33-57 Care cervical 2 [facility] discAnxietyLipomaSinu [address] [facility] [address], [place] sitis, [facility] AcuteDegeneration, [place], cervical [place], [address], [place] discAnxietyLipoma NOS [place], tel: [phone]. [phone] tel: [phone] 0001 - [facility] Degeneration, Dec-2 [employer], Primary cervical 8-201 MEGAN. 33-57 Care discAnxietyDegenerati 1 [facility] [place] on, [address] [facility], [place] lumbar/lumbosacral St, [place] discDegeneration, [place], [place], [address], [place] discAnxietyDegenerati [place], tel: on, [phone]. [phone] lumbar/lumbosacral tel: disc [phone] 0001 - [facility] Degeneration, Dec-0 [employer] [facility] Inc, Primary cervical 1-201 MEGAN. 33-57 Care discAnxietyDegenerati 1 [facility] [place] on, [address] [facility], [place] lumbar/lumbosacral St, [place] discDegeneration, [place], [place], [address], [place] discAnxietyDegenerati [place], tel: on, [phone]. [phone] lumbar/lumbosacral tel: disc [phone] 0001 - [facility] Degeneration, [employer], Primary cervical 0-201 MEGAN. 33-57 Care discAnxietyDegenerati 1 [facility] [place] on, cervical [address], [place] discAnxiety St, [place], [place], [place], [address], [place], tel: [phone]. [phone] tel: [phone] 0001 - [facility] Unspecified vitamin D Sep- [employer], Primary deficiencyAnxietyDege 5-201 MEGAN. 33-57 Care neration, cervical 1 [facility] [place] discEnteritis, viral [address] [facility] [address], [place] NOSFatigue / St, [place] MalaiseDeficiency, [place], [place], vitamin D [place], [address], [place] NOSAnxietyDegeneratio [place], tel: n, cervical [phone]. [phone] discEnteritis, viral tel: NOS [phone] 0001 - S AnxietyDegeneration, [employer], Primary cervical 8-201 MEGAN. 33-57 Care discDegeneration, 1 [facility] [place] lumbar/lumbosacral [address] [facility] [address], [place] discAnxietyDegenerati St, [place] on, cervical [place], [place], discDegeneration, [place], [address], [place] lumbar/lumbosacral [place], tel: disc [phone]. [phone] tel: [phone] 0001 - [facility] Degeneration, [employer], Primary cervical 1-201 MEGAN. 33-57 Care discAnxietyDegenerati 1 [facility] [place] on, [address] [facility] [address], [place] lumbar/lumbosacral St, [place] discNauseaDegeneratio [place], [place], n, cervical [place], [address], [place] discAnxietyDegenerati [place], tel: on, 34[address]. [phone] lumbar/lumbosacral tel: discNausea alone [phone] 0001 - [facility] Degeneration, Akhil-2 [employer]IFF [facility] Inc, Primary cervical 3-201 MEGAN. 33-57 Care discAnxietyContact 1 S John [place] dermatitis due to [address] [place] [address], [place] metalEnteritis, viral [facility] NOS[facility]eneration, [place], cervical [place], [address], [place] discAnxietyDermatitis [place], [place] [phone]. [phone] metalsEnteritis, tel: viral NOS [phone] 0001 - [facility] Degeneration, November- SKIFF [facility] Inc, Primary cervical 6-201 MEGAN. 33-57 Care discAnxietyAtopic 1 [facility] John [place] eczemaDegeneration, [address] [place] [address], [place] lumbar/lumbosacral [facility] disc [place], [place], [place], [address], [place], tel: [phone]. [phone] tel: [phone] 0001 - [facility]HS AnxietyDegeneration, Oct- SKIFF [employer] Inc, Primary cervical disc 8-201 MEGAN. 33-57 Care 1 [facility] John [address], [place], [place], [address], [place], tel: 16715. [phone] tel: [phone] 0001 - [facility] AnxietyDegeneration, Mar-3 SKIFF [employer], Primary cervical disc 1-201 MEGAN. 33-57 Care 1 [facility] John [address], [place], [place], [place], [address], [place], tel: 21077. [phone] tel: [phone] 0001 - [facility] AnxietyDegeneration, Mar-0 SKIFF [facility] Inc, Primary cervical 3-201 MEGAN. 33-57 Care discHypothyroidism 1 [facility] John [address], [facility], [place], [place], [place], [address], [place], tel: 69132. [phone] tel: [phone] 0001 - [facility] AnxietyDegeneration, Feb-0 SKIFF [facility] Inc, Primary cervical disc 3-201 MEGAN. 33-57 Care 1 [facility] John [address], [place], [place], [place], [address], [facility], tel: [phone]. [phone] tel: [phone] 0001 - [facility] Degeneration, Josh- SKIFF Referring [facility] Inc, Primary cervical 6-201 MEGAN. Provider: 33-57 Care discAnxietyContusion, 1 [facility] PC MEGAN Lopez [place] face/scalp/neck [address] [place] [address], [address], [facility] [address], [facility], tel: [address]. [place], [address]. [id number] tel: tel: [phone] 0001 - [facility] Degeneration, Dec- SKIFF [facility] Inc, Primary cervical discCervical 9-201 MEGAN. 33-57 Care StrainDegeneration, 0 [facility] lumbar/lumbosacral [address] [place] [address], [place], [address], [facility], tel: [phone]. [phone] tel: [phone] 0001 - S Dermatitis NECAnxiety May- SKI Referring [facility] Inc, Primary 1-201 MEGAN. Provider: 33-57 Care 0 [facility] PC MEGAN Lopez [address], [address], [facility] [address], [facility], tel: [address]. [place], [address]. [id number] tel: tel: [phone] 0001 - S AnxietyDegeneration, SKIFF [facility] Inc, Primary cervical 4-201 MEGAN. 33-57 Care discDermatitis, other 0 [facility] John [address], [place], [place], [place], [address], [facility], tel: [phone]. [phone] tel: [phone] 0001 - [facility] Dermatophytosis, Sep- SKIFF [facility] Inc, Primary footDegeneration, 6 MEGAN. 33-57 Care cervical discAnxiety [address], [place], [place], [place], [address], [facility], tel: [phone]. [phone] tel: [phone] 0001 - [facility] AnxietyDegeneration, SKIFF [facility] Inc, Primary cervical - MEGAN. 33-57 Care discLymphadenitis, 0 [facility] acute [address] [place] [address], [place], [place], [place], [address], [place], tel: 52939. [phone] tel: [phone] 0001 - [facility]HS Mononeuritis, upper SKIFF [facility] Inc, Primary limb NECDegeneration, MEGAN. 33-57 Care cervical disc [address], [place], [place], [address], [place], tel: 58475. [phone] tel: [phone] 0001 - [facility] Degeneration, SKIFF [employer], Primary cervical MEGAN. 33-57 Care discDegeneration, 0 [facility] lumbar/lumbosacral [address] [place] [address] discAnxietyLipoma NOS [place], [place], [place], [address], [facility], tel: 67114. [phone] tel: [phone] 0001 - [facility] Degeneration, SKIFF [facility] Inc, Primary cervical 7- MEGAN. 33-57 Care discDegeneration, 0 [facility] lumbar/lumbosacral [address] [place] [address], [place] discHypothyroidism [place], [place], [place], [address], [facility], tel: 56448. [phone] tel: [phone] 0001 - [facility] Pharyngitis, Oct- SKIFF [facility] Inc, Primary AcuteDegeneration, MEGAN. 3357 Care cervical 0 [facility] discDegeneration, [address] [place] [address] lumbar/lumbosacral [place], [place], [place], [address], [place], tel:+ [phone]. [phone] tel: [phone] 0001 - [facility] Pharyngitis, Acute Mar- SKIFF [facility] Inc, Primary MEGAN. 33-57 Care [address], [place], [place], [place], [address], [place], tel: 06003. [phone] tel: [phone] 0001 - UHS Swelling/mass/lump, Mar-0 SKIFF [facility] Inc, Primary localized MEGAN. 3357 Care superficialDegenerati 0 [facility] on, cervical [address] [place], [place], [place], [address], [place], tel: 24083. [phone] tel: [phone] 0001 - [facility] Degeneration, Feb-0 LORD MARLENY. [facility] Inc, Primary cervical disc - [place] [address] 3357 Care 0 [facility], [place], [address]. [address], [place] tel: tel: [phone] 0001 - [facility] Lipoma of skin Fe- [employer] [facility] Inc, Primary NECDegeneration, MEGAN. 3357 Care cervical discDysuria [address], [facility], [place], [place], [place], [address], [place], tel: [phone]. [phone] tel: [phone] 0001 - [facility] Lipoma of skin Josh- [employer] [facility] Inc, Primary NECUrticaria, MEGAN. 3357 Care allergicDegeneration, 0 [facility] cervical discAnxi[address], [place] state NOS [place], [place], [place], [address], [facility], tel: [phone]. [phone] tel: [phone] 0001 - [facility] Hypothyroidism Dec-0 SKIFF [employer], Primary NOSAdvEf, allergy, 3-200 MEGAN. 33-57 Care unspecifiedDegenerati 9 [facility] PC John Aparicio on, cervical disc [address] [facility], [place], [place], [place], [address], [facility], tel: [phone]. [phone] tel: [phone] 0001 - [facility] Degeneration, Nov- [employer], Primary cervical discAnxiety 2-200 MEGAN. 33-57 Care state NOS 9 [facility] PC John Aparicio [address] [facility], [place], [place], [place], [address], [facility], tel: [phone]. [phone] tel: [phone] 0001 - [facility] Anxiety state Oct- [employer], Primary NOSDegeneration, 5-200 MEGAN. 33-57 Care lumbar/lumbosacral 9 [facility] PC John Aparicio disc [address] [facility], [place], [place], [place], [address], [facility], tel: [phone]. [phone] tel: [phone] 0001 - [facility] Disorder, affective Sep- [employer], Primary personality 7-200 MEGAN. 33-57 Care NOSReaction, 9 [facility] MARIAELENA Aparicio adjustment w/anxious [facility], moodDysuriaCystitis, [facility] acute [place], [place], [address], [facility], tel: [phone]. [phone] tel: [phone] 0001 - [facility] Degeneration, Aug- [employer], Primary cervical 3-200 MEGAN. 33-57 Care discDegeneration, 9 [facility] PC John Aparicio lumbar/lumbosacral [address], discDisorder, [place], [place], NECHypothyroidism NOS [place], [address], [facility], tel: 04661. [phone] tel: [phone] 0001 - [facility] Degeneration, SKIFF [facility] Inc, Primary cervical 4-200 MEGAN. Care discDegeneration, 9 [facility] PC John Aparicio lumbar/lumbosacral [address], disc St, [place], [place], [address], [place], tel: 95640. [phone] tel: [phone] 0001 - [facility] Degeneration, SKIFF [facility] Inc, Primary cervical 6-200 MEGAN. Care discHypothyroidism 9 [facility] PC John Aparicio NOSDisorder, [address], depressive NEC St, [place], [place], [place], [address], [place], tel: [phone]. [phone] tel: [phone] 0001 - [facility] Degeneration, SKIFF [facility] Inc, Primary cervical 9-200 MEGAN. Care discDegeneration, 9 [facility] PC John Aparicio lumbar/lumbosacral [address], discDisorder, St, [place] depressive NEC [place], [place], [address], [place], tel: 53452. [phone] tel: [phone] 0001 - [facility] Degeneration, SKIFF [employer] Inc, Primary cervical 1-200 MEGAN. Care discDegeneration, 9 [facility] MARIAELENA Aparicio lumbar/lumbosacral [address], discHypothyroidism St, [place] NOS [place], [place], [place], [address], [place], tel: [phone]. [phone] tel: [phone] 0001 - UHS Murmur, cardiac, Mar- KIMBERLY [facility] Inc, Primary undiagnosedDegenerati 4-200 YOVANA. Care on, cervical 9 SP PO John Aparicio discDegeneration, [address], Street, lumbar/lumbosacral [place], [place], [address]. [address], [place] tel: tel: [phone] 0001 - [facility] Degeneration, SKIFF [facility] Inc, Primary cervical disc 4-200 MEGAN. 33-57 Care 9 [facility] PC John Aparicio [address], [address], [place], [place], [address], [place], tel: [phone]. [phone] tel: [phone] 0001 - [facility] Degeneration, Josh-2 SKIFF [employer], Primary cervical 7-200 MEGAN. 33-57 Care discDegeneration, 9 [facility] PC John Aparicio lumbar/lumbosacral [address], discMigraine, St, [place] Unspecified, W/o [place], Mention [place], [address], [place] Intractable Migraine [place], tel: W/o Mention Of Status [address]. [id number] Migrainosus tel: [phone] 0001 - [facility] Degeneration, Dec-3 SKIFF [facility] Inc, Primary cervical 0-200 MEGAN. 33-57 Care discDisorder, 8 [facility] MARIAELENA Aparicio depressive [address] [facility] [address], NECDisorder, St, [place] affective personality [place], [place], N[place], [address], [place], tel: 48358. [phone] tel: [phone] 0001 - [facility] Disorder, depressive Dec-0 [employer], Primary NECReaction, acute 2-200 MEGAN. Care stress w/emotional 8 [facility] MARIAELENA Aparicio disturbDegeneration, [address], cervical St, [place] discDegeneration, [place], [place], lumbar/lumbosacral [place], [address], [place] disc [place], tel: [phone]. [phone] tel: [phone] 0001 - [facility] Degeneration, Nov-0 [employer], Primary cervical 4-200 MEGAN. 33-57 Care discDegeneration, 8 [facility] PC John Aparicio lumbar/lumbosacral [address], discObserv, specfied St, [place] suspected med cond, [place], [place], not fndDisorder, [place], [address], [place] depressive NEC [place], tel: [phone]. [phone] tel: [phone] 0001 - [facility] Degeneration, Oct-0 SKIFF [facility] Inc, Primary cervical 2-200 MEGAN. 33 Care discDisorder, 8 [facility] PC John Aparicio depressive [address], NECDis, , [place] histrionic [place], [place], personality NOS [place], [address], [facility], tel: [phone]. [phone] tel: [phone] 0001 - [facility] Degeneration, Sep-0 SKIFF [facility] Inc, Primary cervical 2-200 MEGAN. Care discDegeneration, 8 [facility] PC John Aparicio lumbar/lumbosacral [address], disc [place], [place], [place], [address], [place], tel: 01500. [phone] tel: [phone] 0001 - [facility] Degeneration, Aug-0 SKIFF [facility] Inc, Primary cervical 4-200 MEGAN. Care discDegeneration, 8 [facility] PC John Aparicio lumbar/lumbosacral [address], discDis, , [place] depressive [place], [place], NECDisorder, [place], [address], [facility], tel: personality [phone]. [phone] NOSNeuritis, tel: lumbosacral NOS [phone] 0001 - [facility]HS Sinusitis, acute Danis-0 SKIFF [facility] Inc, Primary NOSSinusitis, acute 3-200 MEGAN. Care NOSDegeneration, 8 [facility] MARIAELENA Aparicio cervical disc [address], [place], [place], [place], [address], [facility], tel: 60861. [phone] tel: [phone] 0001 - [facility] Degeneration, November- SKIFF [facility] Inc, Primary cervical 9-200 MEGAN. Care discDegeneration, 8 [facility] PC John Aparicio lumbar/lumbosacral [address], disc St, [place], [place], [place], [address], [facility], tel: 04016. [phone] tel: [phone] 0001 - [facility] Degeneration, Oct- SKIFF [facility] Inc, Primary cervical 9-200 MEGAN. Care discDegeneration, 8 [facility] MARIAELENA Aparicio lumbar/lumbosacral [address] [facility] [address], discDegeneration, St, [place] lumbar/lumbosacral [place], [place], discDegeneration, [place], [address], [place] cervical disc [place], tel: [phone]. [phone] tel: [phone] 0001 - S Degeneration, SKIFF S Inc, Primary cervical 7-200 MEGAN. Care discDegeneration, 8 [facility] PC John Aparicio lumbar/lumbosacral [address] [facility] [address], discHypothyroidism , [place] NOSMigraine NOS w/o [place], intractable [place], [address], [place] migraineDisorder, [place], tel: histrionic [phone]. [phone] personality NOS tel: [phone] 0001 - [facility] Hypothyroidism [facility] Referring S Inc, Primary NOSDisorder, 4-200 MEGAN. Provider: Care depressive 8 [facility] PC MEGAN Aparicio NECDisorder, 119 [facility], [facility] Street, histrionic St, PC 119 [place] personality [facility], [place], [place], NOSDegeneration, [place], [place] [address], [place] cervical [place], [place], tel: discDegeneration, [address]. [place], [address]. [phone] lumbar/lumbosacral tel: tel:607 discHeadache, [phone] [id number] tensionDisorder, histrionic personality NOSDisorder, depressive NEC 0001 - S Degeneration, Fe [facility] Inc, Primary lumbar/lumbosacral 5-200 MEGAN. Care discDegeneration, 8 [facility] MARIAELENA Aparicio cervical discAnxiety [address] [facility] [address], state NOSSpasm, St, [place] muscle [place], [place], [address], [place], tel: [phone]. [phone] tel: [phone] 0001 - S Degeneration, [facility] S Inc, Primary cervical 8-200 MEGAN. Care discDegeneration, 8 [facility] PC John Aparicio lumbar/lumbosacral [address], discHypothyroidism [facility] NOS [place], [place], [address], [place], tel: [phone]. [phone] tel: [phone] 0001 - [facility] Degeneration, Oct-2 SKIFF [facility] Inc, Primary cervical 5-200 MEGAN. 33-57 Care discDegeneration, 7 [facility] PC John Aparicio lumbar/lumbosacral [address], discHypothyroidism [facility] NOS [place], [place], [address], [place], tel: [phone]. [phone] tel: [phone] 0001 - [facility] Degeneration, Sep-1 SKIFF [facility] Inc, Primary cervical 8-200 MEGAN. 33-57 Care discHypothyroidism 7 [facility] PC John Aparicio NOSHeadache, [address], tensionMyalgia/myosit [facility] is NOS [place], [place], [address], [place], tel: [phone]. [phone] tel: [phone] 0001 - [facility] Degeneration, Akhil-0 SKIFF [facility] Inc, Primary cervical 5-200 MEGAN. 33-57 Care discDegeneration, 7 [facility] PC John Aparicio lumbar/lumbosacral [address], disc St, [place], [place], [address], [place], tel: [phone]. [phone] tel: [phone] 0001 - [facility] Degeneration, May-0 SKIFF [facility] Inc, Primary cervical 1-200 MEGAN. 33-57 Care discHypothyroidism 7 [facility] PC John Aparicio NOSInfection, up [address], respirat, rn homecare sites, [facility] acute NOS [place], [place], [address], [place], tel: [phone]. [phone] tel: [phone] 0001 - [facility] Degeneration, Apr-0 SKIFF [facility] Inc, Primary cervical 2-200 MEGAN. 33-57 Care discDegeneration, 7 [facility] PC John Aparicio lumbar/lumbosacral [address], discAnxiety state NOS , [place], [place], [place], [address], [place], tel: [phone]. [phone] tel: [phone] 0001 - [facility] Degeneration, Mar-0 SKIFF [facility] Inc, Primary cervical discSpasm, 5-200 MEGAN. 33-57 Care muscleDegeneration, 7 [facility] PC John Aparicio lumbar/lumbosacral [facility], discDegeneration, , [place] lumbar/lumbosacral [place], [place], [address], [place], tel: [phone]. [phone] tel: [phone] 0001 - [facility] Degeneration, Feb-0 SKIFF [facility] Inc, Primary cervical discMigraine 5-200 MEGAN. 33-57 Care NOS w/o intractable 7 [facility] PC John Aparicio migraineMyalgia/myosi [facility], tis NOSDisorder, [facility] affective personality [place], [place], NOSAnxiety state NOS [place], [address], [place], tel: 45920. [phone] tel: [phone] 0001 - [facility] Degeneration, Josh-0 SKIFF [facility] Inc, Primary cervical 8-200 MEGAN. 33-57 Care discMyalgia/myositis 7 [facility] PC John Aparicio NOSMyalgia/myositis [facility], NOSDegeneration, , [place] cervical disc [place], [place], [address], [place], tel: [phone]. [phone] tel: [phone] 0001 - [facility] Degeneration, Dec-0 SKIFF [facility] Inc, Primary cervical 5-200 MEGAN. 33-57 Care discDegeneration, 6 [facility] PC John Aparicio cervical discMigraine [address] [facility], NOS w/o intractable St, [place] migraine [place], [place], [address], [place], tel: [phone]. [phone] tel: [phone] 0001 - [facility] Degeneration, Nov-0 SKIFF Referring [facility] Inc, Primary cervical 9-200 MEGAN. Provider: 33-57 Care discHypothyroidism 6 [facility] PC MEGAN Aparicio NOS 119 [facility], [address], [facility] [address], [facility], tel: [address]. [place], [address]. [id number] tel: tel: [phone] 0001 - S Myalgia/myositis Oct- [facility] Inc, Primary NOSHypothyroidism 0-200 MEGAN. 33-57 Care NOSDegeneration, 6 [facility] PC John Aparicio cervical disc [address] [place] [address], [place], [place], [place], [address], [place], tel: [phone]. [phone] tel: [phone] 0001 - [facility] Myalgia/myositis Sep-0 [facility] Inc, Primary NOSSymptom involving 7-200 MEGAN. 33-57 Care abdomen/pelvis 6 [facility] John Sanchezor NECDegeneration, [address] [place] [address], cervical [facility] discMyalgia/myositis [place], [place], NOSDegeneration, [place], [address], [place] [facility], tel: discHypothyroidism 010[address]. [phone] NOS tel: [phone] 0001 - [facility] Myalgia/myositis November-3 [facility] Referring [facility] Inc, Primary NOSHypothyroidism NOS 0-200 MEGAN. Provider: 33-57 Care 6 [facility] PC MEGAN Sanchezor 119 [facility], [facility], , [address], [facility] [address], [facility], tel: [address]. [place], [phone]. [id number] tel: tel: [phone] 0001 - [facility] Myalgia/myositis Apr-1 [facility] Inc, Primary NOSAnxiety state 1-200 MEGAN. 33-57 Care NOSDisorder, 6 [facility] PC John Sanchezor affective personality [address] [facility], NOS , [place], [place], [place], [address], [facility], tel:+ [phone]. [phone] tel: [phone] 0001 - [facility]HS Mar- FRANCISCA [employer], Primary 4-200 NAYELI. Care 6 [address] [place], [place], [facility] [address], tel: tel: [phone] 0001 - [facility] Hypothyroidism NOS Josh- [employer], Primary 0-200 MEGAN. Care 6 S PC John Aparicio [address] [place], [place] [address], [place], [facility], [facility], tel: [phone] tel: [phone] - [facility] Hypothyroidism NOS May- [employer], Primary 0-200 LAB. . Care [address] [place], [place], [facility], [place] tel: [phone] - S Myalgia/myositis [employer], Primary NOSMigraine NOS w/o 3-200 MEGAN. Care intractable 5 S MARIAELENA Aparicio migraineHypothyroidis [address] [place] [address], m NOS [place], [place], [place], [facility], [facility], tel: [phone] tel: [phone] - S Spasm, muscleAbnormal Feb- [employer], Primary weight gain 1-200 MEGAN. Care 5 S MARIAELENA Aparicio [address] [place] [address], [place], [place], [place], [address], [facility], tel: [phone] tel: [phone] - S Examination, routine [employer], Primary medicalMyalgia/myosit 6-200 MEGAN. Care is NOSMigraine NOS 5 S PC John Aparicio w/o intractable [address] [facility], migraine [place], [place], [place], [address], [facility], tel: [phone] tel: [phone] Family History Family Member Diagnosis Age At Onset Mother Diabetes mellitus Mother Cancer, breast 64 Immunizations Vaccine Date Status Comments TDAP (Boostrix or Adacel) administered Note: [facility] ; Source: Other Provider Payers Payer name Insurance type Covered libertarian ID Authorization(s) Dl Ray [id number] Social History Type Description Quantity Date Captured Comments Alcohol Use Details Unknown Caffeine Use Details Unknown Tobacco Use Status Unknown Smoking Status Unknown Vital Signs Date / Height Weight BMI Pulse Blood Temperature Respiratory Body Head BMI Time: Rate Pressure Rate Surface Circumference percentile Area Unknown Chief Complaint And Reason For Visit No information Reason For Referral Reason For Referral Unknown Plan Of Care Date Type Action Status Referral Ordered: ordered Echocardiography Appointment date/timeframe: 01/20/2019 Referral Ordered: ordered ZAHIDA GRAY MD -Gastroenterology (related to Encounter for screening colonoscopy) Referral Referred To: ordered ZAHIDA GRAY MD [address] [place], [address] [phone] Ordered: Referrals: Gastroenterology. ZAHIDA GRAY MD. Evaluate and treat Appointment date/timeframe: 1 Month Referral Ordered: ordered Mammogram, Screening, Bilateral, 2 Views Each Referral Ordered: ordered Mammogram, Screening, Unilateral, 2 Views Referral Ordered: ordered U/S Abdomen limited (for spec organ, must value organ in site) Referral Ordered: ordered CT Spine Cervical w/o Contrast Referral Ordered: ordered Mammogram Screening bilateral 2 views ea Referral Ordered: ordered Screening Mammogram, Bilateral, 2 Views Each Referral Referred To: [place], [place], [id number] Ordered: JUDI MIMS. Genrl Surg. Consult and treat. Appointment date/timeframe: 10/01/2009 Referral Ordered: ordered Abdomen Ultrasound - Limited Referral Referred To: ordered [facility] Ordered: [facility]. Community referral. Consult and treat. Date Type Problem Goal Intervention Status Start Date Unknown History Of Present Illness Encounter Date Complaint History Of Present Illness No information Functional Status Encounter Date Functional Assessment Cognitive Assessment Unknown Medications Administered Medication Instructions Dosage Effective Dates Status Comments (start - stop) Soma 350 mg tablet take 1 by Oral - No Longer route 4 times every Active day as needed for spasm Synthroid 75 mcg take 1 tablet by 75 MCG - No Longer tablet oral route every Active day Instructions Date Instruction Additional Information Will get a CMP before treating. Related to Elevated blood pressure reading Will recheck the TSH Related to Hypothyroidism, unspecified Will continue the diazepam Related to Anxiety disorder, unspecified Will reorder a echocardiagram Related to Heart murmur Not taking analgessics . some benefit Related to Spondylosis of cervical from her soma. region without myelopathy or radiculopathy To retest TSH on current dose. Related to Hypothyroidism, unspecified Will continue her current dose of Related to Anxiety disorder, diazepam. unspecified We will incresae the dose of Related to Hypothyroidism, synthroid ot 75mcg daily and recheck unspecified in 6 weeks. Will contiue the diazepam. Related to Anxiety disorder, unspecified Continue the mobic. Related to Migraine, unspecified, not intractable, without status migrainosus Will continue the diazepam 10mg three Related to Anxiety disorder , times daily. unspecified Continue the current dose of thyroid Related to Hypothyroidism, and have the thyroid function done. unspecified Consider physical therapy. Related to Osteoarthritis of spine with radiculopathy, lumbar region Continue current thyroid Related to Hypothyroidism, replacement. unspecified Will continue the carisaprodil and Related to Spondylosis of cervical Mobic region without myelopathy or radiculopathy Continue with light exercise as Related to Fibromyalgia tolerated. Will continue coco soma as it has Related to Fibromyalgia been helpful Refferre to Dr. Gray in [place] Related to Encounter for screening [place] colonoscopy Given new order for mammography Related to Encounter for screening mammogram for breast cancer Will cotninue the current thyroid Related to Hypothyroidism, replacement unspecified Has not found any treatment Related to Migraine without aura and effective, without status migrainosus, not intractable Will cotninue coco diazepam. Related to Anxiety disorder, unspecified addressing the headaches with Related to Migraine without aura and morphine a few days each month. without status migrainosus, not intractable Willccontinue the diazepam. Related to Anxiety disorder, unspecified She will continue the use of the Related to Anxiety disorder, diazepam as precribed. unspecified Continue thyroid replacement. Recheck Related to Hypothyroidism, thyroid. unspecified Will continue ocasional intermittent Related to Migraine, unspecified, use of morphine for migraines. not intractable, without status migrainosus Will continue the diazepam Related to Anxiety disorder, unspecified Will continue the use of Related to Status post cervical carisiprodal. spinal fusion Will continue to use morphine prn Related to Migraine, unspecified, onset of migraines. not intractable, without status migrainosus Will continue diazepam. Related to Anxiety disorder, unspecified Will treat with doxycycline. Related to Dental pain Drink plenty of fluids. Start the Related to Acute (sudden onset) zithromax inflammation of the lining of the sinus cavity Continue diazepam. Related to Anxiety Will continue to use the morphine for Related to Migraine acute migraine.
--- NOTE | 2019-11-01 12:10 | UC ---
Abdominal Pain Female HPI - HPI Summary HPI Summary: 1. PATIENT PRESENTS WITH ABOUT 3 WEEKS OF OVERALL MALAISE AND LOWER ABDOMINAL DISCOMFORT. FEELS IT IS DIFFICULT TO URINATE AT TIMES AND IS COMPLAINING OF SOME FREQUENCY. NO BACK PAIN. NO NAUSEA. NO RESPIRATORY SYMPTOMS. STATES SHE HAS HOT FLASHES AT NIGHT SOMETIMES BUT DENIES ANY DOCUMENTED FEVER. NO KNOWN EXPOSURE TO COVID19. NO RECENT TRAVEL. 2. IS ALSO COMPLAINING OF LEFT-SIDED DENTAL PAIN AND HEADACHE. SHE HAS KNOWN POOR DENTITION IN THE LEFT UPPER AND LOWER MOLARS. HAS HAD INTERMITTENT TROUBLE WITH THESE TEETH FOR OVER A YEAR. HAS NO DENTIST. - History of Current Complaint Chief Complaint: UCGeneralIllness Stated Complaint: DENTAL/URINARY COMPLAINT Time Seen by Provider: 11/01/19 10:23 Hx Obtained From: Patient Hx Last Menstrual Period: had for 3 months, stopped 1 week ago Onset/Duration: Gradual Onset, Lasting Weeks, Still Present Timing: Constant Severity Initially: Moderate Severity Currently: Moderate Pain Intensity: 8 Pain Scale Used: 0-10 Numeric Location: Diffuse, Suprapubic Radiates: No Character: Sharp Aggravating Factor(s): Nothing Alleviating Factor(s): Nothing Associated Signs and Symptoms: Positive: Urinary Symptoms. Negative: Diaphoresis, Fever, Cough, Back Pain, Constipation, Blood in Stool, Decreased Appetite, Vaginal Discharge, Nausea Allergies/Adverse Reactions: Allergies Allergy/AdvReac Type Severity Reaction Status Date / Time amitriptyline [From Elavil] Allergy Altered Verified 11/01/19 10:13 Mental Status diphenhydramine Allergy Altered Verified 11/01/19 10:13 [From Benadryl] Mental Status doxycycline Allergy GI Upset Verified 11/01/19 10:13 latex Allergy Rash Verified 11/01/19 10:13 lorazepam [From Ativan] Allergy Altered Verified 11/01/19 10:13 Mental Status morphine Allergy GI Upset Verified 11/01/19 10:13 nortriptyline Allergy Altered Verified 11/01/19 10:13 Mental Status oxycodone [From OxyContin] Allergy n/v, "feel Verified 11/01/19 10:13 like i want to " oxymorphone [From Opana] Allergy n/v, "feel Verified 11/01/19 10:13 like i want to " Penicillins Allergy Difficulty Verified 11/01/19 10:13 Breathing pseudoephedrine Allergy Altered Verified 11/01/19 10:13 [From Sudafed] Mental Status Home Medications: Home Medications Diazepam TAB(*) [Valium TAB(*)] 10 mg PO BEDTIME 02/07/13 [History Confirmed 02/12] Soma TAB* 350 mg PO TID PRN 01/29/19 [History Confirmed 11/01/19] Mupirocin 2% OINT* [Bactroban 2 % Oint*] 1 applic TOPICAL BID 5 Days #1 tube 08/14 [Rx Confirmed 06/15/19] Acetaminophen [Acetaminophen Extra Strength] 1,000 mg PO ONCE PRN 11/01/19 [ History Confirmed 11/01/19] Ibuprofen TAB* [Advil TAB*] 800 mg PO PRN 11/01/19 [History] Levothyroxine TAB* [Synthroid 88 MCG TAB*] 88 mcg PO DAILY 11/01/19 [History Confirmed 11/01/19] Meloxicam [Mobic] 15 mg PO 11/01/19 [History] clindamycin HCL [Clindamycin HCl] 300 mg PO QID #40 capsule 11/01/19 [Rx] PMH/Surg Hx/FS Hx/Imm Hx - Additional Past Medical History Additional PMH: FIBROMYALGIA Endocrine History: Hypothyroidism Cardiovascular History: Hypertension Respiratory History: Asthma - Surgical History Surgical History: Yes Surgery Procedure, Year, and Place: age 14- bowel surgery, tubal, 03/2012-tumor removed between rib and hip, neck surgery for bone spurs, discs "replaced" and plate inserted. appendectomy. moles removed - Family History Known Family History: Negative: Cardiac Disease, Hypertension, Diabetes - Social History Alcohol Use: None Alcohol Amount: no etoh in 8 years. Substance Use Type: None Smoking Status (MU): Never Smoked Tobacco Review of Systems All Other Systems Reviewed And Are Negative: Yes Constitutional: Positive: Negative ENT: Positive: Dental Pain - LEFT UPPER AND LOWER Respiratory: Positive: Negative Cardiovascular: Positive: Negative Gastrointestinal: Positive: Abdominal Pain Genitourinary: Positive: Dysuria Neurological/Mental Status: Positive: Headache Physical Exam Triage Information Reviewed: Yes Appearance: Well-Appearing, No Pain Distress, Well-Nourished Vital Signs: Initial Vital Signs Temp 98 F 11/01/19 10:33 Pulse 85 11/01/19 10:33 Resp 16 11/01/19 10:33 BP 110/63 11/01/19 10:33 Pulse Ox 98 11/01/19 10:33 Laboratory Tests 11/01/19 10:49 POC Urine Color Yellow POC Urine Clarity Clear POC Urine pH 5.5 POC Ur Specif Pender 1.020 POC Urine Protein Negative POC Ur Glucose (UA) Negative POC Urine Ketones Negative POC Urine Blood Negative POC Urine Nitrite Negative POC Urine Bilirubin Negative POC Urine Urobilinogen 0.2 POC U Leukocyte Esteras Negative Vital Signs Reviewed: Yes Eyes: Positive: Conjunctiva Clear ENT: Positive: Hearing grossly normal, Pharynx normal, TMs normal Dental: Positive: Percussion Tenderness @ - LEFT UPPER AND LOWER MOLARS, Gross Decay/Caries @ Neck: Positive: Supple, Nontender, No Lymphadenopathy Respiratory Exam: Normal Cardiovascular Exam: Normal Abdomen Description: Positive: Soft, Other: - TENDER DIFFUSELY - WORSE SUPRAPUBIC REGION. Negative: CVA Tenderness (R), CVA Tenderness (L), Distended , Guarding Bowel Sounds: Positive: Present Musculoskeletal: Positive: No Edema Neurological: Positive: Alert Psychological: Positive: Age Appropriate Behavior Skin: Negative: Rashes Diagnostics - Radiology CT ABD/PELVIS W/O CONTRAST Radiology Interpretation Completed By: Radiologist Summary of Radiographic Findings: 1. Negative for urolithiasis or hydronephrosis. 2. Pelvic ultrasound warranted to further assess the enlarged uterus and RIGHT ovarian lesion. 3. Negative for ascites. 4. Negative for lymphadenopathy. TRANSVAGINAL US Radiology Interpretation Completed By: Radiologist Summary of Radiographic Findings: 1. Thickened endometrium in setting of abnormal menstrual bleeding. Consider tissue sampling to assess for polyp, hyperplasia, or carcinoma. 2. Large uterine body to fundal fibroid with resulting impression on the endometrium. 3. 3.6 cm maximum dimension probable hemorrhagic cyst of the RIGHT ovary for which reassessment with ultrasound in 1- 2 menstrual cycles or months is suggested for reassessment. Abd Pain Female Course/Dx - Course Course Of Treatment: CT OF THE ABDOMEN AND PELVIS WELL TRANSVAGINAL ULTRASOUND OBTAINED WHICH SHOW FIBROID UTERUS AND HEMORRHAGIC RIGHT OVARIAN CYST. PATIENT NEEDS [facility] FOLLOW-UP. TO THE ER WITHOUT FAIL IF SYMPTOMS WORSEN. URINE DIP NOT SUGGESTIVE OF UTI. FOR DENTAL PAIN WILL COVER WITH CLINDAMYCIN. ADVISED PATIENT TO FOLLOW UP WITH A DENTIST CHEMO. - Differential Dx/Diagnosis Provider Diagnosis: Fibroid uterus, Hemorrhagic cyst of right ovary, Pain, dental Discharge ED - Sign-Out/Discharge Documenting (check all that apply): Patient Departure All imaging exams completed and their final reports reviewed: Yes - Discharge Plan Condition: Stable Disposition: HOME Prescriptions: clindamycin HCL [Clindamycin HCl] 300 mg PO QID #40 capsule Patient Education Materials: Ovarian Cyst (ED), Pelvic Pain in Women (ED), Toothache (ED) Referrals: [facility] [Provider Group] - As Soon As Possible Polina BIRD,Dmitriy Carranza [Primary Care Provider] - Additional Instructions: ULTRASOUND TODAY SHOWS: Thickened endometrium in setting of abnormal menstrual bleeding. Consider tissue sampling to assess for polyp, hyperplasia, or carcinoma. Large uterine body to fundal fibroid with resulting impression on the endometrium. 3.6 cm maximum dimension probable hemorrhagic cyst of the RIGHT ovary for which reassessment with ultrasound in 1-2 menstrual cycles or months is suggested for reassessment. URINE TEST NEGATIVE FOR UTI. CALL [facility] FOR AN APPOINTMENT CHEMO. GO TO THE ER WITHOUT FAIL IF YOUR PAIN BECOMES INTOLERABLE OF IF YOU START BLEEDING AGAIN AND/OR DEVELOP SHORTNESS OF BREATH, RAPID HEART BEAT, DIZZINESS OR ANY OTHER CONCERNING SYMPTOMS. WILL COVER YOUR DENTAL PAIN WITH CLINDAMYCIN. YOU MUST FOLLOW-UP WITH A DENTIST OR YOU WILL CONTINUE TO HAVE RECURRENT PAIN AND INFECTION. - Billing Disposition and Condition Condition: STABLE Disposition: Home
[2019-11-01] MEDS ORDERED: Acetaminophen TAB* 325 MG PO ONE (13:02)
[2019-11-01 13:20] VITALS: BP 108/73
== END 2019-11-01 14:47 | disposition home or self-care (01) ==
LOC: UCEAST 09:57
DX: D25.9 Leiomyoma of uterus, unspecified (principal); N83.201 Unspecified ovarian cyst, right side; K08.89 Other specified disorders of teeth and supporting structures; K02.9 Dental caries, unspecified; E03.9 Hypothyroidism, unspecified; I10 Essential (primary) hypertension; M06.9 Rheumatoid arthritis, unspecified; Z79.890 Hormone replacement therapy; Z88.5 Allergy status to narcotic agent; Z88.0 Allergy status to penicillin; Z88.8 Allergy status to other drugs, medicaments and biological substances; Z88.1 Allergy status to other antibiotic agents; Z91.040 Latex allergy status
CPT/HCPCS: 74176; 76830; 76856; 81003; 99212; A9270-GY; G0463